=== PATIENT | male | born 1965 | race Caucasian/White ===

== ENCOUNTER 2021-09-13 18:46 | Emergency (ER) | payer OTHER ==
[~2021-09-13] VITALS: Ht 180.3 cm; Wt 113.4 kg
[2021-09-13 19:25] LABS: BASOPHILS ABSOLUTE AUTO 0.05 K/mm3 (0.00-0.23); BASOPHILS PERCENT AUTO 0 % (0-2); EOSINOPHILS ABSOLUTE AUTO 0.18 K/mm3 (0.00-0.68); EOSINOPHILS PERCENT AUTO 1 % (0-6); Hematocrit 37.2 % (37.0-53.0); Hemoglobin 12.2 g/dL (13.5-17.5); IMMATURE GRAN ABSOLUTE AUTO 0.26 K/mm3 (0.00-0.10); IMMATURE GRAN PERCENT AUTO 2 % (0-1); LYMPHOCYTES ABSOLUTE AUTO 2.97 K/mm3 (0.84-5.20); LYMPHOCYTES PERCENT AUTO 18 % (21-46); MONOCYTES ABSOLUTE AUTO 0.86 K/mm3 (0.16-1.47); MONOCYTES PERCENT AUTO 5 % (4-13); Mean Corpuscular HGB 29.5 pg (26.0-34.0); Mean Corpuscular HGB Conc 32.8 g/dL (31.5-36.5); Mean Corpuscular Volume 90 fL (80-100); Mean Platelet Volume 10.2 fL (9.1-12.4); NEUTROPHILS ABSOLUTE AUTO 12.34 K/mm3 (1.96-9.15); NEUTROPHILS PERCENT AUTO 74 % (41-73); Platelet Count 291 K/mm3 (150-400); RDW Coefficient Variation 14.3 % (11.7-14.2); RDW Standard Deviation 46.6 fL (35.1-46.3); Red Blood Cell Count 4.13 M/mm3 (4.30-5.90); White Blood Cell Count 16.66 K/mm3 (4.00-11.30)
[2021-09-13 19:41] LABS: International Normalized Ratio 1.04; Prothrombin Time Results 10.9 Sec (9.7-11.5)
[2021-09-13 19:57] LABS: PCO2 Arterial 34.9 mmHg (35-45); PO2 Arterial 316 mmHg (80-100); pH Blood Arterial 7.39 (7.35-7.45)
[2021-09-13 20:09] LABS: Alanine Aminotransfer (ALT/SGP 88 U/L (12-78); Albumin, Blood 3.2 g/dL (3.4-5.0); Albumin/Globulin Ratio 0.9 (0.8-1.8); Alk Phos 54 U/L (50-136); Anion Gap 8 mmol/L (6-16); Aspartate Aminotrans (AST/SGOT 82 U/L (12-37); Bilirubin, Total 0.5 mg/dL (0.1-1.0); Blood Urea Nitrogen 26 mg/dL (8-24); Bun/Creatinine Ratio 21.1 (12.0-20.0); CO2, Blood 23 mmol/L (21-32); Calcium, Blood 9.1 mg/dL (8.5-10.1); Chloride, Blood 112 mmol/L (98-108); Creatinine, Blood 1.23 mg/dL (0.60-1.20); Ethanol (Alcohol), Blood, Med <3 mg/dL; Globulin, Blood 3.5 g/dL (2.2-4.0); Glomerular Filtration Rate 70 (60-); Glucose, Blood 101 mg/dL (70-99); Potassium, Blood 4.8 mmol/L (3.5-5.5); Sodium, Blood 143 mmol/L (136-145); Total Protein, Blood 6.7 g/dL (6.4-8.2)
[2021-09-13 20:51] LABS: U Amphetamine Screen DETECTED; U Barbituate Screen Not Detected; U Benzodiazapine Screen Not Detected; U Buprenorphine Screen Not Detected; U Cannabinoids Screen Not Detected; U Cocaine Screen Not Detected; U Methadone Screen Not Detected; U Methamphetamine Screen DETECTED; U Opiates Screen Not Detected; U Oxycodone Screen Not Detected; U Phencyclidine Screen Not Detected; U Propoxyphene Screen Not Detected
== END 2021-09-13 21:35 | disposition short-term general hospital (02) ==
LOC: ER 18:46
PROVIDERS: Emergency Medicine
DX: S06.6X0A Traumatic subarachnoid hemorrhage without loss of consciousness, initial encounter (principal); G93.89 Other specified disorders of brain; S12.590A Other displaced fracture of sixth cervical vertebra, initial encounter for closed fracture; S12.690A Other displaced fracture of seventh cervical vertebra, initial encounter for closed fracture; S32.021A Stable burst fracture of second lumbar vertebra, initial encounter for closed fracture; S02.831A Fracture of medial orbital wall, right side, initial encounter for closed fracture; S02.2XXA Fracture of nasal bones, initial encounter for closed fracture; S02.40DA Maxillary fracture, left side, initial encounter for closed fracture; S01.01XA Laceration without foreign body of scalp, initial encounter; R40.2430 Glasgow coma scale score 3-8, unspecified time; V48.3XXA Unspecified car occupant injured in noncollision transport accident in nontraffic accident, initial encounter; Y92.410 Unspecified street and highway as the place of occurrence of the external cause
CPT/HCPCS: 31500; 36600; 51702; 70450; 71045; 71260; 72125; 72170; 73110; 74177; 80053; 82803; 83690; 85025; 85610; 86850; 86900; 86901; 86920; 90714; 94002; G0480; J0690; J2250; J2704; J7030; P9016; Q9967

== ENCOUNTER → 2022-01-19 | Outpatient (CLI) | payer OTHER ==
[2022-01-19 17:12] LABS: Source, Urine Straight Cath
[2022-01-19 17:38] LABS: Appearance, Urine Clear (Clear); Bacteria Rare /hpf; Bilirubin, Urine Neg (Neg); Blood, Urine Neg (Neg); Color, Urine Yellow (P-Yellow); Glucose Qualitative, Urine Neg (Normal); Ketones, Urine Neg (Neg); Leukocyte Esterase, Urine Trace (Neg); Nitrite, Urine Neg (Neg); Protein, Urine Trace (Neg); Red Blood Cells, Urine 0-2 /hpf (0-2); Squamous Epithelial Cells Rare /hpf (Few); Urobilinogen, Urine NORM (Normal); White Blood Cells, Urine 25-50 /hpf (0-5)
== END | disposition home or self-care (01) ==
LOC: LAB SHORT 17:09 → LAB 17:09
PROVIDERS: Family Medicine
DX: N39.0 Urinary tract infection, site not specified (principal)
CPT/HCPCS: 81001

== ENCOUNTER 2022-01-28 07:32 | Inpatient (IN) | payer OTHER ==
[~2022-01-28] VITALS: Ht 180.3 cm; Wt 101.2 kg
[2022-01-28 07:55] LABS: Calcium, Ionized (POC) 1.18 mmol/L (1.10-1.46); Chloride (POC) 107 mmol/L (98-108); Creatinine (POC) 0.6 mg/dL (0.8-1.3); Glucose (ISTAT POC) 140 mg/dL (70-99); Hemoglobin (POC) 15.6 g/dL (13.5-17.5); Potassium (POC) 4.7 mmol/L (3.5-5.5); Sodium (POC) 143 mmol/L (135-148); Total CO2 (POC) 23 mmol/L (21-32)
[2022-01-28 08:04] LABS: BASOPHILS ABSOLUTE AUTO 0.09 K/mm3 (0.00-0.23); BASOPHILS PERCENT AUTO 1 % (0-2); EOSINOPHILS ABSOLUTE AUTO 0.27 K/mm3 (0.00-0.68); EOSINOPHILS PERCENT AUTO 2 % (0-6); Hematocrit 43.8 % (37.0-53.0); Hemoglobin 13.9 g/dL (13.5-17.5); IMMATURE GRAN ABSOLUTE AUTO 0.61 K/mm3 (0.00-0.10); IMMATURE GRAN PERCENT AUTO 4 % (0-1); LYMPHOCYTES ABSOLUTE AUTO 4.24 K/mm3 (0.84-5.20); LYMPHOCYTES PERCENT AUTO 28 % (21-46); MONOCYTES ABSOLUTE AUTO 0.77 K/mm3 (0.16-1.47); MONOCYTES PERCENT AUTO 5 % (4-13); Mean Corpuscular HGB 25.5 pg (26.0-34.0); Mean Corpuscular HGB Conc 31.7 g/dL (31.5-36.5); Mean Corpuscular Volume 80 fL (80-100); Mean Platelet Volume 9.6 fL (9.1-12.4); NEUTROPHILS ABSOLUTE AUTO 9.36 K/mm3 (1.96-9.15); NEUTROPHILS PERCENT AUTO 61 % (41-73); Platelet Count 413 K/mm3 (150-400); RDW Coefficient Variation 19.7 % (11.7-14.2); RDW Standard Deviation 56.1 fL (35.1-46.3); Red Blood Cell Count 5.46 M/mm3 (4.30-5.90); White Blood Cell Count 15.34 K/mm3 (4.00-11.30)
[2022-01-28 08:17] LABS: Alanine Aminotransfer (ALT/SGP 79 U/L (12-78); Albumin, Blood 3.4 g/dL (3.4-5.0); Albumin/Globulin Ratio 0.7 (0.8-1.8); Alk Phos 113 U/L (50-136); Anion Gap 8 mmol/L (6-16); Aspartate Aminotrans (AST/SGOT 99 U/L (12-37); Bilirubin, Total 0.5 mg/dL (0.1-1.0); Blood Urea Nitrogen 14 mg/dL (8-24); CO2, Blood 23 mmol/L (21-32); Calcium, Blood 9.4 mg/dL (8.5-10.1); Chloride, Blood 110 mmol/L (98-108); Creatinine, Blood 0.52 mg/dL (0.60-1.20); Globulin, Blood 4.7 g/dL (2.2-4.0); Glomerular Filtration Rate 120 (60-); Glucose, Blood 145 mg/dL (70-99); Potassium, Blood 4.9 mmol/L (3.5-5.5); Sodium, Blood 141 mmol/L (136-145); Total Protein, Blood 8.1 g/dL (6.4-8.2)
[2022-01-28 09:11] LABS: Source, Urine Straight Cath
[2022-01-28 09:15] LABS: Bilirubin, Urine Neg (Neg); Blood, Urine 4+ (Neg); Glucose Qualitative, Urine Neg (Neg); Ketones, Urine Neg (Neg); Leukocyte Esterase, Urine 3+ (Neg); Nitrite, Urine Pos (Neg); Protein, Urine 2+ (Neg); Urobilinogen, Urine NORM (Normal); pH, Urine 6.5 (5.0-8.0)
[2022-01-28 09:22] LABS: Color, Urine Yellow (P-Yellow)
[2022-01-28 09:26] LABS: Bacteria Many /hpf; Squamous Epithelial Cells Rare /hpf (Few); White Blood Cells, Urine TNTC /hpf (0-5)
[2022-01-28 09:27] LABS: Appearance, Urine Cloudy (Clear)
[2022-01-28] MEDS ORDERED: OXYC5 PO (09:49)
[2022-01-28] MEDS ORDERED: BACLOFEN5 M5 PO (09:50)
[2022-01-28] MEDS ORDERED: ELIQUIS5 M3 PO (09:50)
[2022-01-28] MEDS ORDERED: Ventolin/Prove6.7 GM INH (09:51)
[2022-01-28] MEDS ORDERED: DOCUZEN 8.6-501 EACH PO (09:51)
[2022-01-28] MEDS ORDERED: MIDO5 PO (09:52)
[2022-01-28] MEDS ORDERED: NEURONTIN300 MG PO (09:52)
[2022-01-28] MEDS ORDERED: ONELAX10 MG RC (09:52)
[2022-01-28] MEDS ORDERED: MIRALAX17 GM PO (09:53)
[2022-01-28] MEDS ORDERED: MIRT30 PO (09:53)
--- NOTE | 2022-01-28 12:30 | NUR ---
Patient arrived via gurnet to ICU 1 and monitored. He was a four person slide to bed. He states left shoulder to hand was very painfulless reason for injury. He was on RA and able to communnicate his needs. He was able to move left UE but very weak and limited, using RUE and just a little shaky. LE's flaccid. Family present to get information. HR 55-78 ansd SB-SR. Patient tolerated liquids.
--- NOTE | 2022-01-28 14:30 | NUR ---
Patient has been resting off and on. He is able to hold cup to drink with straw. He tolerated meds all at once with assist and sips of liquids. I was assistang him in different types of utensils to see what he is able to use. He remains on RA and sats >90%. His MAP remains >65. HR in the 70's
--- NOTE | 2022-01-28 16:30 | NUR ---
Patient mostly resting and on phone talking with family. VSS. Reassessed movements and patients LUE has movement to shoulder and arm and unable to close hand and tremulous with poor fine motor skills. Rh hand partial contracted and minimal movement to shoulder and arm and painful to touch or move. Bilateral LE's can feel touch and wiggles toes and gross movements upper legs.
--- NOTE | 2022-01-28 17:44 | NUR ---
Made special spoon for patient and wrapped hand in coban which allowwed him to feed self and ate 100% of dinner. He is able to hold cup and drink. He has fraser draining to gravity and had 1200ml/hr cloudy with sediment urine out. He continues to use cell phone to keep in touch with family, gave son update.
--- NOTE | 2022-01-28 22:19 | NUR ---
Assumed care at 1900, report received from dayshift RN. Pt in bed, on room air, alert and oriented. Call light within reach, VS stable. Will continue to monitor.
[2022-01-29 03:51] LABS: BASOPHILS ABSOLUTE AUTO 0.04 K/mm3 (0.00-0.23); BASOPHILS PERCENT AUTO 1 % (0-2); EOSINOPHILS ABSOLUTE AUTO 0.24 K/mm3 (0.00-0.68); EOSINOPHILS PERCENT AUTO 3 % (0-6); Hematocrit 34.8 % (37.0-53.0); Hemoglobin 10.8 g/dL (13.5-17.5); IMMATURE GRAN ABSOLUTE AUTO 0.06 K/mm3 (0.00-0.10); IMMATURE GRAN PERCENT AUTO 1 % (0-1); LYMPHOCYTES ABSOLUTE AUTO 2.18 K/mm3 (0.84-5.20); LYMPHOCYTES PERCENT AUTO 25 % (21-46); MONOCYTES ABSOLUTE AUTO 0.58 K/mm3 (0.16-1.47); MONOCYTES PERCENT AUTO 7 % (4-13); Mean Corpuscular HGB 25.1 pg (26.0-34.0); Mean Corpuscular Volume 81 fL (80-100); Mean Platelet Volume 9.7 fL (9.1-12.4); NEUTROPHILS PERCENT AUTO 64 % (41-73); Platelet Count 361 K/mm3 (150-400); RDW Coefficient Variation 19.4 % (11.7-14.2); RDW Standard Deviation 56.9 fL (35.1-46.3); Red Blood Cell Count 4.31 M/mm3 (4.30-5.90)
[2022-01-29 04:13] LABS: Albumin, Blood 2.9 g/dL (3.4-5.0); Albumin/Globulin Ratio 0.8 (0.8-1.8); Bilirubin, Total 0.3 mg/dL (0.1-1.0); Bun/Creatinine Ratio 23.6 (12.0-20.0); Calcium, Blood 8.9 mg/dL (8.5-10.1); Creatinine, Blood 0.47 mg/dL (0.60-1.20); Globulin, Blood 3.7 g/dL (2.2-4.0); Total Protein, Blood 6.6 g/dL (6.4-8.2)
--- NOTE | 2022-01-29 06:17 | NUR ---
Shift summary. Pt rested in bed throughout shift. No acute events overnight. Photo put in chart of pressure injury on left buttock. VS stable throughout shift, see assessement for further details. Will continue to monitor and report off to dayshift RN.
--- NOTE | 2022-01-29 07:38 | NUR ---
Received report from Dale BACA. Patient awake in bed and asked for phone so he can start calling family. ECHO is in ICU and will be doing him next. He is alert and oriented and is able to communicate his needs. Patient has mostly full use of RUE from shoulder down and part use of hand as he is not able to squeeze closed completly. Left arm from shoulder down is limited and painful and hand contracted. He cam move bilateral LE grossly, has feeling in feet and can partially wigle some toes. He is on RA and sats >90%. He has 16Fr fraser draining to gravity with yellow cloudy urine with alot of sediment. He has IV to RH and is flushed and SL'd.
--- NOTE | 2022-01-29 08:00 | NUR ---
Received report from Venkat BACA. Patient continues to rest on BIPAP 18/10 and 40% and sats >90%. She opens eyes to verbal stimuli but does not really track voive. She knods to simple questions and not really sure if following commands but squeezes hand and wiggles toes when touching and giving command.She has PICC line to NESTOR and dressing intact and site WNL's and is flushed and SL'd. She has fraser draining to gravity light edward colored urine. She also has rectal tube in place with brown liquid stool. OG in place and is infusing Pivot 1.5 at 50 ml/hr and 30 ml water flushes Q4. Repositioned and boosted in bed. VSS. Patient has ggod strength to all distal extremities and has gross movements.
--- NOTE | 2022-01-29 09:37 | NUR ---
No changes with patient. After setting him up for breakdfast he was able to manage by himself. After breakfast we layed back down and he has been resting since gave warm blankets. VSS. Lowest HR have seen this shift ia 56 SB.
--- NOTE | 2022-01-29 12:00 | NUR ---
PT in room with patient talking about siort and watermaster plans. He remains on RA and sats >90%. He has been resting off and on when left alone. Significant other just left and will be back. Set him up for lunch and he is in room feeding himself. Patient denies any current needs.
--- NOTE | 2022-01-29 14:17 | NUR ---
Patient has had quiet a few visitors and when not visiting he has been on the phon. patient SB-SR and no episode of severe jose alejandro. He has remained alert and oriented. Just prior to lunch he stated was not feeling well but VS good and no other signs other than verbal clues. He has been managing his ongoing araceli ADLs himself with assist. Patient denies any current needs.
--- NOTE | 2022-01-29 15:30 | NUR ---
No significant changes with patient. He rest occassionally between socializing. Remains on RA and sats >90%. Got him some deserts and set utensils up and he was able to feed self.
--- NOTE | 2022-01-29 17:34 | NUR ---
Patient resting and awakened for dinner. He is on RA and sats >90%. No changes to extremity movement. 1500 ml's out for urine. He is able to feed self and calls appropriately for care. VSS.
--- NOTE | 2022-01-29 20:10 | NUR ---
Assumed care at approximately 1900. Report received from dayshift RN. Pt resting in bed, on room air, alert and oriented. No acute needs, VS stable. Will continue to monitor.
[2022-01-30 03:46] LABS: BASOPHILS ABSOLUTE AUTO 0.05 K/mm3 (0.00-0.23); BASOPHILS PERCENT AUTO 1 % (0-2); EOSINOPHILS ABSOLUTE AUTO 0.41 K/mm3 (0.00-0.68); EOSINOPHILS PERCENT AUTO 4 % (0-6); Hematocrit 34.3 % (37.0-53.0); Hemoglobin 10.8 g/dL (13.5-17.5); IMMATURE GRAN ABSOLUTE AUTO 0.14 K/mm3 (0.00-0.10); IMMATURE GRAN PERCENT AUTO 1 % (0-1); LYMPHOCYTES ABSOLUTE AUTO 2.33 K/mm3 (0.84-5.20); LYMPHOCYTES PERCENT AUTO 23 % (21-46); MONOCYTES ABSOLUTE AUTO 0.93 K/mm3 (0.16-1.47); MONOCYTES PERCENT AUTO 9 % (4-13); Mean Corpuscular HGB 25.3 pg (26.0-34.0); Mean Corpuscular HGB Conc 31.5 g/dL (31.5-36.5); Mean Corpuscular Volume 80 fL (80-100); Mean Platelet Volume 9.6 fL (9.1-12.4); NEUTROPHILS ABSOLUTE AUTO 6.42 K/mm3 (1.96-9.15); NEUTROPHILS PERCENT AUTO 62 % (41-73); Platelet Count 353 K/mm3 (150-400); RDW Coefficient Variation 19.7 % (11.7-14.2); RDW Standard Deviation 57.5 fL (35.1-46.3); Red Blood Cell Count 4.27 M/mm3 (4.30-5.90); White Blood Cell Count 10.28 K/mm3 (4.00-11.30)
[2022-01-30 04:06] LABS: Bun/Creatinine Ratio 29.8 (12.0-20.0); Calcium, Blood 9.1 mg/dL (8.5-10.1); Creatinine, Blood 0.5 mg/dL (0.60-1.20); Potassium, Blood 4.2 mmol/L (3.5-5.5)
--- NOTE | 2022-01-30 06:06 | NUR ---
Shift summary. Pt in bed for duration of shift. VS stable. Pt became anxious during shift and stated that he felt something was wrong. EKG, blood sugar and vital signs obtained. Dr. Morgan notified, order obtained for 1 mg of ativan, one time. Pt had calmed by the time the ativan order was verified and did not require it. VS parameters all within normal limits during episode. See shift assessment for further details. Will continue to monitor and report off to dayshift RN.
--- NOTE | 2022-01-30 08:33 | NUR ---
CARE OF PT ASSUMED AT 0700. PT HYPOTENSIVE MAP AROUND 60. BRADYCARDIA 50'S. PT DOES AROUSE. C/O CHRONIC PAIN TO SHOULDERS AND LEFT ARM/HAND 5/5. C/O MUSCLE SPASMS. DR SANDHU AT BEDSIDE THIS AM, GIVEN UPDATE. MIDIDRINE INCREASED, FLUIDS TO BE STARTED.
--- NOTE | 2022-01-30 09:29 | NUR ---
PT EMPERATRIZ DOWN TO 40'S, SLEEPING. VERY DIFFICULT TO AROUSE, BUT ONCE AWAKE, ALERT AND ORIENTED, FELL QUICKLY BACK TO SLEEP AGAIN. POWERGLIDE ST PLACED TO BALBIR. 1/2NS STARTED AT 75.
--- NOTE | 2022-01-30 10:11 | NUR ---
PT DECLINED BEDBATH. ATTENDS CHANGED, SMEAR CLEANED. MEPILEX CHANGED, REDNESS NOTED UNDER DRSG, SEE PICS. CATH CARE COMPLETED. EASY PUSH CALL LIGHT WITHIN REACH. PT ABLE TO USE RIGHT ARM.
--- NOTE | 2022-01-30 17:46 | NUR ---
BP HAS IMPROVED T/O SHIFT. PT STILL COMPLAINS OF SEVERE SPASMS TO MOST OF HIS BODY; BILAT LEGS, ABD, SHOULDERS. BACLOFEN INCREASED IN DOSE TODAY, PT ALSO HAS PRN MUSCLE RELAXER. PT DOES TEND TO GET VERY DROWSY WITH BRADYCARDIA 40'S AFTER MUSCLE RELAXER GIVEN. HOME NSAID CREAM ORDERED AND HELPS A LOT PER PT. HEATING PAD PLACED BEHIND NECK ALSO HAS HELPED WITH PAIN PER PT. PT HAD TWO VERY SMALL BM'S TODAY. GOOD U/O THIS SHIFT. 1/2 NS CONT'S TO RUN AT 75CC/HR. POWERGLIDE PLACED TO BALBIR THIS AM.
--- NOTE | 2022-01-30 21:01 | NUR ---
ASSUMED CARE. AOX3, ABLE TO MAKE NEEDS KNOWN. ABLE TO USE PUSH CALL LIGHT AND HAS ADAPTIVE DEVICES THAT HELP HIM USE HIS PHONE AND CALL LIGHT. FREQUENT MUSCLE SPASMS THAT RANGE FROM LEGS UP TO NECK HE REPORTS WHICH CAUSES PAIN. MEDICATED PER EMAR. LS DIM IN BASES, DENIES COUGH OR CONGESTION. SATS >95% ON RA. SINUS EMPERATRIZ WITH RATE IN THE 50'S. BP STABLE. ABD SOFT SLIGHT DISTENSION. BT ACTIVE, LARGE VERY SOFT BM NOTED. DRESSING CHANGED. ROM PROVIDED TO BLE. REPOSITIONED. CATH PATENT. MEDS GIVEN. CALL LIGHT IN REACH.
--- NOTE | 2022-01-31 05:26 | NUR ---
SHIFT SUMMARY: PT REMAINED STABLE T/O SHIFT. VS HAVE BEEN STABLE EXCEPT A LOW BP THIS AM WITH SBP 80'S MAP OF 62. DENIES ANY DIZZINESS OR CHEST PAIN. CONTINUES TO HAVE SEVERE SPASMS TO MOST OF HIS BODY. KEPT UP ON BACLOFEN AND ZANEFLEX WHICH HELPED TO EASE THE SPASMS SO HE COULD GET SOME SLEEP. PAIN CREAM, OXYCODONE, AND HEAT HELPED WITH PAIN. HR REMAINED IN THE 50'S MOST OF SHIFT OR HIGHER. LARGE SOFT BM TONIGHT. URINE OUTPUT 1650 FROM BHARDWAJ. 03/20 NS CONTS AT 75CC/HR. NO OTHER CHANGES TO NOTE THIS SHIFT. CALL LIGHT IN REACH.
--- NOTE | 2022-01-31 07:30 | NUR ---
CARE OF PT ASSUMED AT 0700. DR SANDHU IN TO SEE PT, UPDATE GIVEN. PT CONTINUES TO C/O SPASMS TO LEGS, ABD, SHOULDER, AND NECK. HEART RATE 40-70'S, BP STABLE. 1/2NS CONTINUES AT 75CC/HR. PT TO REMAIN PCU STATUS TODAY.
--- NOTE | 2022-01-31 16:11 | NUR ---
PT TURNED TO CLEAN BM, NEW MEPILEX PLACED. WHEN HUNTER BOOTS REMOVED OLD APPEARING PRESSURE SORE NOTED TO LEFT HEEL. WE DID REMOVE BOOTS YESTERDAY, BUT DIDNT NOTE THIS. AREA IS CALLOUSED AND HARD, DARK PURPLE, DOESNT JAVIER. PICTURES TAKEN. BOTH FEET HAVE BEEN FLOATED X TWO DAYS WITH HUNTER BOOTS REMOVED SEVERAL TIMES EACH SHIFT TO MOVE FEET.
--- NOTE | 2022-01-31 18:35 | NUR ---
PT STATES HE FEELS BETTER OVERALL TODAY. PT MEDICATED ONCE FOR PAIN, AND MEDICATED W PRN MUSCLE RELAXER FOR BODY SPASMS. PT ABLE TO WORK W OT TODAY BUT DECLINED WORKING W PT D/T PAIN/SPASMS. CHAIR AND BATH OFFERED BUT PT DECLINED D/T SPASMS. PT ALSO DECLINED TO BE TURNED A FEW TIMES FOR THE SAME REASON. PT WAS BOOSTED AND SHIFTED AT TIMES IN LIEU OF TURN WHEN HE DECLINED. PT WAS EDUCATED ON IMPORTANCE OF TURNS D/T PRESSURES SORE. BP IMPROVED, HIGHER TODAY THAN YESTERDAY. PT'S HEART RATE HIGHER OVERALL TODAY WELL. PT ABLE TO EAT SOME OF HIS MEAL ON HIS OWN WITH A VELCRO STRAP THAT HOLDS UTENSILS, BUT DOES REQUIRE HELP WITH EATING SOUP/FRUIT ETC. PT IS HOPING TO BE DISCHARGED TO CARE FACILITY HE STATES HIS GIRLFRIEND IS UNABLE TO PROVIDE FULL CARE. CARE MANAGEMENT IS WORKING ON THIS. PT HAS SEVERAL LOOSE BM'S TODAY, SMALL TO MED. MEPILEX REPLACED ON COCCYX, NO CHANGE TO THAT WOUND. PT CONTINUES TO USE HEATING PAD FOR PAIN TO LEFT SHOULDER AND STATES IT HELPS.
--- NOTE | 2022-02-01 05:50 | NUR ---
SHIFT SUMMARY: PT CONTINUES TO HAVE MUSCLE SPASMS IN LEFT UPPER EXTREMITY. BEST RELIEF WITH DICLOFENAC CREAM. HOME MED HYDROXYZINE ORDERED PRN TID FOR ANXIETY. PT HAD ONE LOOSE BM OVERNIGHT. HELD HIS STOOL SOFTENERS DUE TO FREQUENT LOOSE BMS THE PAST DAY. BHARDWAJ SECURE, DRAINING TO GRAVITY PUT OUT OVER 2300ML OVERNIGHT. PRN TYLENOL + OXY GIVEN. SINUS EMPERATRIZ TO SR 50-70 HEART RATE THROUGHOUT NIGHT NOTED. 1/2 NS RUNNING AT 75ML/HR TO RIGHT POWERGLIDE. BUTTOCKS MEPILEX CHANGED.
[2022-02-01 06:42] LABS: BASOPHILS ABSOLUTE AUTO 0.05 K/mm3 (0.00-0.23); BASOPHILS PERCENT AUTO 1 % (0-2); EOSINOPHILS ABSOLUTE AUTO 0.37 K/mm3 (0.00-0.68); EOSINOPHILS PERCENT AUTO 5 % (0-6); Hematocrit 34.7 % (37.0-53.0); Hemoglobin 10.8 g/dL (13.5-17.5); IMMATURE GRAN ABSOLUTE AUTO 0.08 K/mm3 (0.00-0.10); IMMATURE GRAN PERCENT AUTO 1 % (0-1); LYMPHOCYTES ABSOLUTE AUTO 1.98 K/mm3 (0.84-5.20); LYMPHOCYTES PERCENT AUTO 28 % (21-46); MONOCYTES ABSOLUTE AUTO 0.68 K/mm3 (0.16-1.47); MONOCYTES PERCENT AUTO 10 % (4-13); Mean Corpuscular HGB 25.1 pg (26.0-34.0); Mean Corpuscular HGB Conc 31.1 g/dL (31.5-36.5); Mean Corpuscular Volume 81 fL (80-100); Mean Platelet Volume 9.6 fL (9.1-12.4); NEUTROPHILS ABSOLUTE AUTO 3.81 K/mm3 (1.96-9.15); NEUTROPHILS PERCENT AUTO 55 % (41-73); Platelet Count 341 K/mm3 (150-400); RDW Coefficient Variation 19.4 % (11.7-14.2); RDW Standard Deviation 56.7 fL (35.1-46.3); White Blood Cell Count 6.97 K/mm3 (4.00-11.30)
[2022-02-01 07:16] LABS: Albumin, Blood 2.8 g/dL (3.4-5.0); Anion Gap 6 mmol/L (6-16); Blood Urea Nitrogen 15 mg/dL (8-24); CO2, Blood 25 mmol/L (21-32); Calcium, Blood 8.9 mg/dL (8.5-10.1); Chloride, Blood 111 mmol/L (98-108); Glomerular Filtration Rate 121 (60-); Glucose, Blood 108 mg/dL (70-99); Magnesium, Blood 2.2 mg/dL (1.6-2.4); Phosphorus, Blood 4.5 mg/dL (2.5-4.9); Potassium, Blood 4.2 mmol/L (3.5-5.5); Sodium, Blood 142 mmol/L (136-145)
--- NOTE | 2022-02-01 08:58 | NUR ---
Assumed care of PCU pt at 0700. Report received from Alba BACA. Pt A&O x 4. Answers questions, follows commands, verbalizes needs. Pleasant and cooperative with care. Reporting spasms to bilateral upper extremities. Plan to continue with prescribed medication regimen. Dr Spear in to see patient. States pt may be medical floor status with telemetry.
--- NOTE | 2022-02-01 11:07 | NUR ---
"Spiritual Care | Patient Request Pt.is awake and welcomes my visit. Pt. is pleasant but has deep questions regarding making changes in his code status. Through theraputic listening and pastoral counselor nurses' association issues of nano and belief are considered, Pt. is appropriately cathartic, and displays evidence of clear thinking. Pt. 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 Normalized the Pt. experience, and discussed the possibility of Palliative Care helping him with an Advanced Directive and possibily a POLST. Prayed with the Pt. Pt. verbalized gratitude for the spiritual care visit, and invited this inspector and mender to return. Gave an update to ICU nurse Opal, and Palliative Care Nurse Samuel."
--- NOTE | 2022-02-01 11:56 | NUR ---
Patient's friend Gisela and s/o Bridger in to see patient. Dropped off snacks for patient. Met with home care scheduler and family/patient state concern about pt going home. Pt assigned to room 364. Chart, medications, belongings, adaptive devices transferred with patient. On transfer, patient had BM. Medium liquid brown BM.
--- NOTE | 2022-02-01 16:27 | NUR ---
Received call from CONSTRUCTION SITE MANAGER Opal reporting Pt to be transfered to medical floor and he would like to discuss AD and POLST. Spoke with Metal Filer Colton reporting similar request. Pt resting in bed and denies pain, dyspnea, anxiety, and nausea. Pt does appear mildly anxious. Pt confirms his wishes to discuss AD and POLST. Educated on both forms and each section to complete. Educated on life sustaining measures including risk factos and implications of CPR. Discussed the importance of appointing a healthcare uniforms sales representative on AD. Offered therapeutic listening and answered questions. Pt reports plan to discuss with friend and requests this RN to return tomorrow morning to assist with completion of forms. Palliative Care will F/U tomorrow
--- NOTE | 2022-02-01 19:55 | NUR ---
END OF SHIFT SUMMARY: PATIENT ARRIVED TO UNIT AT LUNCH TIME. PATIENT ALERT AND ORIENTED X4. PATIENT REPORTED NERVE PAIN IN HIS LEFT SHOULDER AND LEFT THUMB AND FOREFINGER. PATIENT REPORTS PAIN IN HIS NECK AND BACK. WITH PHYSICAL STIMULATION, SUCH REPOSITIONING, PATIENT EXPERIENCES PAINFUL MUSCLE SPASMS. MEDICATED THROUGHOUT THE SHIFT FOR PAIN AND MUSCLE SPASMS. PATIENT IS INDEPENDENT WITH EATING (AFTER SET UP), HIS PHONE, CALL LIGHT AND REMOTE. PATIENT EXPRESSES MOTIVATION TO INCREASE HIS STRENGTH AND CAPABILITIES. PATIENT WORKED WITH PT AND OT TODAY. PATIENT TOLERATED WELL.
--- NOTE | 2022-02-02 04:51 | NUR ---
PAIN NOT WELL MANAGED THROUGHOUT SHIFT. PATIENT HAS SCHEDULED OXYCODONE 2.5 MG Q 6 HOURS THAT WAS INSUFFICIENT IN PAIN MANAGEMENT. AROUND 0415 PATIENT WAS UNABLE TO COPE WITH PRESENT PAIN AND REQUESTED ADDITIONAL DOSES OF PAIN MEDICATION AND MUSCLE RELAXANT. SPOKE WITH DR. THOMAS WHO ORDERED ONE TIME DOSE OF BACLOFEN 20 MG AND OXYCODONE 5 MG. PATIENT'S PAIN IMPROVED AFTER ADMINISTRATION. SHIFT OTHERWISE UNREMARKABLE. BHARDWAJ DRAINING WELL, CLEAN AND INTACT. REPOSITIONED WITH MODERATE ASSISTANCE. INCONTINENT OF BM. CALL LIGHT LEFT WITHIN REACH.
--- NOTE | 2022-02-02 10:54 | NUR ---
Brief supportive visit this AM. Pt reports not having spoken with his friend yet. Gentle education on considering appointing a healthcare business representative that lives local and easy to contact. Pt expresses appreciation and will continued considering healthcare rep. Palliative Care will remain available.
--- NOTE | 2022-02-02 13:27 | NUR ---
Spiritual Care Visit. Pt. is awake in bed and welcomes my visit. Pt. is pleasant, and verbalized gratitude for the discussion he had with Palliative Care nurse Samuel. Pt. is condiering implications of establishing his Advanced Directive and possibly changing his NOK decision maker. Re-establish rapport. Prayed with Pt. Pt. verbalized gratritude for the spiritual care visit.
--- NOTE | 2022-02-02 18:11 | NUR ---
SHIFT SUMMARY PATIENT IS ALERT AND ORIENTED. PATIENT WAS GETTING 2.[address] APPROVED AN ORDER TO 5MG OXYCODONE FOR PAIN. PAIN SEEMS BETTER MANAGED TODAY THAN WHAT NOC NURSE REPORTED. PATIENTS BHARDWAJ IS PATENT AND DRAINING TO GRAVITY. PATIENT HAS NOT COMPLAINED OF SOB, NAUSEA, OR VOMITTING. NO ACUTE EVENTS THIS SHIFT. VITAL SIGNS REVIEWED. PATIENT IN LOCKED AND LOWEST POSITION. CALL LIGHT IN PLACE. WILL MONITOR UNTIL SHIFT CHANGE.
--- NOTE | 2022-02-03 04:27 | NUR ---
SHIFT SUMMARY PATIENT HAD NO ACUTE CHANGES. AXOX 4 AND BEDREST. BHARDWAJ PATENT AND DRAINING TO GRAVITY. POWERGLIDE BALBIR INTACT. REPORTED ANXIETY AND ATARAX 25 MG GIVEN PER EMAR. OXYCODONE 5 MG GIVEN X 2 FOR NECK/RIGHT SHOULDER PAIN. ZANAFLEX 4 MG GIVEN X ONE FOR RESTLESS LEGS. DENIES SOB AND N/V. VSS/AFEBRILE. REPORTED BAD DREAM CRYING WHEN AWAKEN. THERAPEUTIC SUPPORT PROVIDED. REPORTS WOULD LIKE TO GO BACK HOME TO [place] WHERE FAMILY AND RELATIVES LIVE. CALL LIGHT IN REACH. BED IN LOWEST POSITION. WILL CONTINUE TO MONITOR UNTIL DAY SHIFT NURSE ASSUMES CARE.
--- NOTE | 2022-02-03 13:24 | NUR ---
Spiritual Care Visit. Pt. is awake, finishing lunch and welcomes my visit. Pt. is pleasant but unsettled about his family particularly his grandchildren. Listen empathetically with a calming presence. Pt. displays evidence of engagement and awareness. Pt. verbalizes hope to be able to be transfeerred to a SNF. Prayed with Pt. Pt. verbalized gratitude for the spiritual care visit, and welcomed this chamber worker to return.
--- NOTE | 2022-02-03 17:00 | NUR ---
SHIFT SHIFT PATIENT IS ALERT AND ORIENTED. PATIENT HAS HAD NO ACUTE EVENTS THIS SHIFT. VITAL SIGNS REVIEWED. PATIENT HAS BEEN INTERVIEWED BY A REHAB FACILITY IN [place], POSSIBLE DISCHARGE NEXT WEEK. PATIENT HAS NOT COMPLAINED OF NAUSEA, SOB OR VOMITTING. PATIENT HAS COMPLAINED OF PAIN, ANXIETY AND RESTLESS LEGS THIS SHIFT AND MEDICATED PER EMAR. PATIENT IS PLEASENT AND COOPERATIVE WITH CARE. BED IN LOCKED AND LOWEST POSITION. CALL LIGHT IN PLACE. WILL MONITOR UNTIL SHIFT CHANGE.
--- NOTE | 2022-02-03 22:53 | NUR ---
WAS REPOSITIONED EARLIER AND GIVEN PAIN MED. CURRENTLY VOICED FEELING "OK". TALKING ON PHONE. HOB ELEVATED. CALL LIGHT IN REACH.
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
--- NOTE | 2022-02-04 13:23 | NUR ---
FRIEND CAME TO VISIT PT BY THE NAME OF FERNANDO MATTHEW PHONE NUMBER . REPORTS HE HAS BEEN TRYING TO GET IN CONTACT WITH PTS FAMILY IN [place] TO NOTIFY THEM OF PTS CONDITION. PT HAD BEEN BEING ASSISTED WITH CARE BY A ROOMMATE WHO IS NOW ON HOSPICE IN A [facility] FACILITY. FRIEND FERNANDO REPORTS CONCERN FOR PT GOING BACK HOME DUE TO LIVING CONDITIONS AND NO HELP AT HOME.
--- NOTE | 2022-02-04 14:56 | NUR ---
APPLIED HEEL MEPILEX TO PT'S LEFT HEEL. PT HAS A QUARTER SIZED PRESSURE BLISTER THAT HAS NOT YET OPENED. FLOATING ON PILLOW TO PREVENT WORSENING.
--- NOTE | 2022-02-04 18:32 | NUR ---
HELD PT MIDODRINE. BLOOD PRESSURE ELEVATED IN THE 190'S OVER 100'S. A FEW MINUTES LATER PT COMPLAINED OF NOT FEELING WELL. RECHECKED BLOOD PRESSURE WHICH WAS 152/88 AND NOTICED PATIENT HAD RELEASED A BIT OF URINE IN CATHETER. RECHECKED BLOOD PRESSURE AGAIN AND WAS 134/86.
--- NOTE | 2022-02-04 18:35 | NUR ---
SHIFT SUMMARY: PT ALERT AND ORIENTED X4. HE HAS BEEN PLEASANT AND COOPERATIVE WITH ALL CARE PROVIDED. PT C/O PAIN TWICE DURING THE SHIFT. GAVE HIM HIS PRN OXYCODONE AND TYLENOL WHICH HE STATED HELPED WITH THE PAIN. HE ALSO RECEIVED 2 DOSES OF PRN MUSCLE RELAXER. AROUND 1800, PT C/O OF NOT FEELING WELL. HE WAS HYPERTENSIVE WHEN CHECKED ON BOTH ARMS. LATER RECHECKED BLOOD PRESSURE AND IT HAD COME DOWN TO 130'S OVER 80'S. HE STATED HE HAD FELT BETTER. APPLIED HEEL MEPILEX DRESSING TO PT LEFT HEEL. CALL LIGHT IN REACH. BED IN LOWEST POSITION. WILL CONTINUE TO MONITOR.
--- NOTE | 2022-02-05 06:13 | NUR ---
SHIFT SUMMARY 56 YR M ADMITTED FOR PAIN MANAGEMENT WHILE DETERMINING PLACEMENT. FULL CODE. NO ACUTE CHANGES THIS SHIFT. PT GOT CONFUSED ABOUT THE TIMING FOR HIS MEDS AND GOT UPSET ABOUT IT THIS MORNING. HE STATED THAT HE HAS BEEN RECEIVING ALL OF HIS PILLS Q4 SINCE HE HAS BEEN HERE AND WANTED TO KNOW WHY THIS NURSE WAS NOT COMPLYING WITH THAT. HIS MEDICATION TIMES AND INTERVALS WERE EXPLAINED TO HIM BUT HE FELT THAT THE EXPLANATION WAS WRONG. HE ASKED TO SPEAK TO A CHARGE NURSE WHO REITERATED WHAT THE RN HAD EXPLAINED TO HIM AND THIS SEEMED TO MAKE HIM FEEL BETTER. HE APOLOGIZED FOR HIS ATTITUDE AND WE ALL MOVED FORWARD FROM IT. HE WOULD STILL LIKE AN OPPORTUNITY TO SPEAK TO HIS DOCTOR REGARDING HIS EVERYDAY MEDS.
--- NOTE | 2022-02-05 18:23 | NUR ---
SHIFT SUMMARY PT HAS BEEN RESTING QUIETLY IN BED. PT HAS CALLED APPROPRIATELY FOR ASSISTANCE AND BEEN COOPERATIVE WITH ALL CARES. PT HAS C/O CHRONIC PAIN THROUGHOUT THE DAY THAT HAS BEEN MANAGED WITH REST, REPOSITIONING, AND MEDICATIONS. PT HAS CONVERSED ABOUT THEIR HOPE FOR FACILITY PLACEMENT TOMORROW.
--- NOTE | 2022-02-06 04:55 | NUR ---
SHIFT SUMMARY 56 YR M AWAITING PLACEMENT AT THIS TIME. FULL CODE. HE CALLS APPROPRIATELY AND IS PLEASANT AND COOPERATIVE WITH CARE. HE HAD A LARGE BM THIS SHIFT AND IT IS VERY PAINFUL FOR HIM WHEN HE IS TURNED DURING CLEAN UP. HE IS PROACTIVE WITH HIS CARE AND VOLUNTARILLY DID ARM EXCERCIZES TO STRENGHTHEN HIS MUSCLES.
--- NOTE | 2022-02-06 19:39 | NUR ---
END OF SHIFT SUMMARY: PATIENT REPORTED HIS BASELINE PAIN IN HIS NECK, LEFT SHOULDER, LEFT BICEP, AND LEFT FINGER AND THUMB. WORKED TO CONTROL HIS PAIN WITH SCHEDULED AND PRN MEDICATIONS AND REPOSITIONING. PATIENT REPORTED HE WOULD LIKE TO SPEAK WITH THE MD TOMORROW ABOUT GROUPING HIS MEDICATIONS TO ACHIEVE BETTER PAIN CONTROL. COMPARED TO LAST SUNDAY, PATIENT HAD DECREASED MUSCLE SPASMS DURING ACTIVITY AND INTERVENTIONS. PATIENT EXPERIENCED SOME HIGHER BLOOD PRESSURES TODAY. PATIENT'S SO REPORTED THAT THIS HAPPENS FREQUENTLY AT HOME AND THAT HIS BP CAN BE CHANGED BY CHANGING HIS POSITION OR BLANKETS. PATIENT CONTINUES TO EXPRESS MOTIVATION TO INCREASE HIS STRENGTH AND PHYSICAL ABILITIES. PATIENT IS WORKING TO SPEAK WITH VARIOUS FACILITIES TO LEARN MORE ABOUT HIS OPTIONS AND HELP FIND AN OPEN BED. PATIENT IS FREQUENTLY ON THE PHONE WITH FAMILY AND FRIENDS. PATIENT REPORTS THAT THEY ARE SUPPORTIVE.
--- NOTE | 2022-02-07 05:26 | NUR ---
LIBRARY CLERK SUMMARY: A&Ox4. PLEASANT AND COOPERATIVE WITH CARE. CALLS APPROPRIATELY. ABLE TO COMMUNICATE NEEDS EFFECTIVELY. MEDICATED PRN PAIN AND SPASMS T/O THE NIGHT. BHARDWAJ PATENT AND DRAINING TO GRAVITY. VSS. NO ACUTE CONCERNS T/O THE NIGHT. WILL REPORT TO ONCOMING RN.
[2022-02-07 06:22] LABS: BASOPHILS ABSOLUTE AUTO 0.03 K/mm3 (0.00-0.23); BASOPHILS PERCENT AUTO 0 % (0-2); EOSINOPHILS ABSOLUTE AUTO 0.33 K/mm3 (0.00-0.68); EOSINOPHILS PERCENT AUTO 5 % (0-6); Hematocrit 35.1 % (37.0-53.0); Hemoglobin 10.8 g/dL (13.5-17.5); IMMATURE GRAN ABSOLUTE AUTO 0.07 K/mm3 (0.00-0.10); IMMATURE GRAN PERCENT AUTO 1 % (0-1); LYMPHOCYTES ABSOLUTE AUTO 2.13 K/mm3 (0.84-5.20); LYMPHOCYTES PERCENT AUTO 30 % (21-46); MONOCYTES ABSOLUTE AUTO 0.69 K/mm3 (0.16-1.47); MONOCYTES PERCENT AUTO 10 % (4-13); Mean Corpuscular HGB Conc 30.8 g/dL (31.5-36.5); Mean Corpuscular Volume 81 fL (80-100); Mean Platelet Volume 9.7 fL (9.1-12.4); NEUTROPHILS ABSOLUTE AUTO 3.75 K/mm3 (1.96-9.15); NEUTROPHILS PERCENT AUTO 54 % (41-73); Platelet Count 390 K/mm3 (150-400); Red Blood Cell Count 4.32 M/mm3 (4.30-5.90)
[2022-02-07 06:58] LABS: Bun/Creatinine Ratio 24.5 (12.0-20.0); Calcium, Blood 8.7 mg/dL (8.5-10.1); Creatinine, Blood 0.61 mg/dL (0.60-1.20); Potassium, Blood 4.2 mmol/L (3.5-5.5)
--- NOTE | 2022-02-07 17:04 | NUR ---
Spiritual Care Visit. Pt. is napping but responds when I enter the room. The Pt. welcomes my visit. Pt. is pleasant and verbalizes the shauna of being accepted into a SNF in [place] with anticipated transfer scheduled for Sunday. Re-establish rapport and consider issues of family and nano. Pt. is occassionally cathartic, but his tears were genuine and displayed evidence of hope. Prayed with the Pt. Pt. requested a Bible, and I provide him with a Dilia AMES/Giulianos. Pt. verbalized gratitude for the bible and the spiritual care visit and request I visit him on Sunday before the holiday.
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
--- NOTE | 2022-02-08 07:31 | NUR ---
SEMICONDUCTOR PROCESSING GROUP LEADER SUMMARY: A&Ox4. PLEASANT AND COOPERATIVE WITH CARE. CALLS APPROPRIATELY AND COMMUNICATES NEEDS EFFECTIVELY. CONTINUES TO STRUGGLE WITH MUSCLE SPASMS AND PAIN. HE IS HOPING TO REVIEW MEDICATION LIST WITH PROVIDER TODAY TO FIGURE OUT HOW MEDICATIONS CAN BE GROUPS TO AVOID SO MANY DIFFERENT MEDICATION ADMINISTRATIONS, ESPECIALLY T/O THE NIGHT. ABDOMEN APPEARS SWOLLEN, THOUGH SOFT. 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 LBM 02/07/22. BHARDWAJ PATENT AND DRAINING AND BLADDER SCAN WNL. PER PT, HE IS PRONE TO BOWEL OBSTRUCTIONS AND IMPACTION D/T SPINAL CORD INJURY. PER DR ALEJO, OK FOR ABD XRAY TO BE DONE THIS MORNING. NO OTHER CONCERNS T/O THE NIGHT. WILL REPORT TO ONCOMING RN.
--- NOTE | 2022-02-08 17:33 | NUR ---
PT IA A/OX4, PLEASANT AND COOPERATIVE. THE PT IS BED REST DUE TO PARAPLEGIA. THE PT WAS TURNED T/O THE DAY. THE PT WAS MEDICATED FOR PAIN, ANXIETY AND FOR MUSCLE SPASM T/O THE DAY. PTS ABD WAS VERY DISTENDED CAUSING THE PT TO FEEL BLOATED A SUPOSITORY AND LAXATIVES WERE GIVEN, THE PT HAD 2 LARGE BM TODAY AND FEELS BETTER AT THIS TIME. PTS FRIENDS WERE IN TO VISIT TODAY. CALL LIGHT IN REACH. WILL CONTINUE TO MONITOR AND ASSESS FOR CHANGES
--- NOTE | 2022-02-08 17:48 | NUR ---
Spiritual Care Visit. Pt. was resting but awakened when I entered the room and welcomed my visit. Pt. is uncomfortable because his position made it difficult to look to his left. I moved the physician's chair to the other side of the bed, and the pt. displayed evidence of greater comfort. Pt. is pleasant and rapport is re-established. Pt. displayed evidence of trust and engagement, and verbalized his excitement for transfer to [facility] on Sunday. Prayed for Pt. Pt. verbalized gratitude for the Spiritual Care and the nursing care he has received.
--- NOTE | 2022-02-09 05:38 | NUR ---
SUMMARY: PT A/OX4, CALLS APPROPRIATELY TO SPECIFY NEEDS AND IS PLEASANT AND COOPERATIVE W/CARE. HE'S W/C BOUND AT BASELINE AND REMAINS ON BEDREST D/T INCOMPLETE QUADRIPLEGIA. PT HAS GROSS MOVEMENT INTACT TO RUE, WEAK LUE W/LIMITED MOBILITY D/T FROZEN SHOULDER AND NEAR FLACCID BLE'S. BRACES REMAIN INTACT TO BLE'S AND KICKSTANDS ALTERNATED FOR CONTRACTURE/ROTATION PREVENTION. HE WAS MEDICATED FOR PAIN PER PT INSTRUCTION W/OXYCODONE, ZANAFLEX AND TYLENOL TOGETHER PRN. SCHEDULED BACLOFEN AND GABAPENTIN RECIEVED PER EMAR HOWEVER PT DISCUSSED W/DIGITAL DATA ANALYST THE NEED FOR THESE MEDS TO BE RX'D QID T/O 24 HOURS VS JUST DAYTIME HOURS TO IMPROVE PAIN CONTROL. HE ALSO WAS PROVIDED ATARAX FOR C/O ANXIETY THIS AM. STOOL SOFTENERS AND SIMETHICONE WERE PROVIDED FOR BLOATING AND GAS BUT MIRILAX WAS HELD PER REQUEST FOR CONT'D LOOSE STOOLS. TURN SCHEDULE WAS MAINTAINED W/PILLOWS PLACED FOR SUPPORT AND MEPILEX REMAINS C/D/I TO EXCORIATED COCCYX. CHRONIC BHARDWAJ IS PATENT/DRAINING. NO ACUTE CHANGES, VSS/AFEBRILE. WCTM AND REPORT TO DAY RN.
--- NOTE | 2022-02-09 15:50 | NUR ---
SYMPTOMATIC BRADYCARDIA PT LETHARGIC THIS AFTERNOON WITH A HEARTRATE FROM 46-49 BPM. PT STILL ALERT & ORIENTED. FALLS ASLEEP QUICKLY WITHOUT CONTINUAL STIMULI. MESSAGE LEFT WITH DR. ROSARIO. MEDICAL ONCOLOGIST NOTIFIED.
--- NOTE | 2022-02-09 17:05 | NUR ---
ATROPINE GIVEN PT GIVEN ATROPINE DUE TO SYMPTOMATIC BRADYCARDIA. TELE IN PLACE PRIOR TO ADMINISTRATION. RUNNING SINUS EMPERATRIZ IN THE HIGH 40S PER PATHOLOGY TECHNICIANKEKE RODNEY. 0.5 OF ATROPINE GIVEN AND PT NOW IN THE MID 50S. COMFIRMED WITH PATHOLOGY TECHNICIAN. PT CONTINES TO BE LETHARGIC. PT INFORMED THAT SEDATING MEDS WILL BE HELD AT TIMES TIME.
--- NOTE | 2022-02-09 18:39 | NUR ---
SHIFT SUMMARY PT HR IN THE MID-LOW 50S AT THIS TIME. PT CONTINUES TO BE LETHARGIC WHEN NO BEING TALKED TO, HOWEVER, LETHARGY APPEARS TO BE IMPROVING. DR. ROSARIO TALKED WITH DR. DUNNE TO COME TAKE A LOOK AT THE PT. DR. DUNNE CAME TO SEE THE PT, EKG, VBG, 500CC FLUID BOLUS ORDERED. DR. DUNNE ALSO STOPPED ALL OF THE ORDERED MUSCLE RELAXERS AND PAIN MEDS. IF PT IS TO NEED SOMETHING IN THE NIGHT, THE RN IS TO CALL DR. DUNNE OR THE COVERING PHYSICIAN TO ASSESS PT AND ORDER MEDS THEN. NOP BM TODAY. FLEET ENEMA HELD PER DR. DUNNE. BHARDWAJ PATENT & DRAINING. PT ALSO PLACED ON TELE THIS SHIFT. RUNNING SINUS EMPERATRIZ. [employer] ASSOCIATE TO CALL IF PT DECREASES BELOW 50BPM. ONE DOSE OF ATROPINE GIVEN EARLIER IN SHIFT WITH A CHANGE FROM HR IN THE 40S TO THE 50S. PT CURRENLTY BACK DOWN IN THE HIGH 40S PER ICE CREAM SHOP ASSOCIATE. PT REMAINS A&OX4, DENIES DIZZINESS, SOB, OR CP. OTHER VS STABLE. NO OTHER ACUTE CHANGES IN ASSESSMENT AT THIS TIME. CALL LIGHT IN REACH.
[2022-02-09 18:54] LABS: Base Excess Venous 1.9 mmol/L; Bicarbonate Venous 26.3 mmol/L (24.0-30.0); PCO2 Venous 33.5 mmHg (38-42); pH Blood Venous 7.49 (7.34-7.37)
--- NOTE | 2022-02-10 05:36 | NUR ---
Summary: Patient BP soft with first vitals check, as well as HR in low 50s. Patient awake and alert requesting his pain and sleeping meds that were discontinued. Notified MD. 500cc bolus given and midodrine dose from 1800 given per MD request. BP checked after meds given and it had come up. Patient prn meds reordered. Patient reported pain and muscle spasms throughout the night. Patient had a few liquid BMs. Patient frequently bears down and locks all of his muscles when he has a spasm. Educated patient to try to avoid bearring down as that can cause a vagal reaction and lower his heart rate even more. Patient family visited at start of shift.
[2022-02-10 06:49] LABS: BASOPHILS ABSOLUTE AUTO 0.04 K/mm3 (0.00-0.23); BASOPHILS PERCENT AUTO 1 % (0-2); EOSINOPHILS ABSOLUTE AUTO 0.39 K/mm3 (0.00-0.68); EOSINOPHILS PERCENT AUTO 5 % (0-6); Hematocrit 32.8 % (37.0-53.0); Hemoglobin 10.6 g/dL (13.5-17.5); IMMATURE GRAN ABSOLUTE AUTO 0.08 K/mm3 (0.00-0.10); IMMATURE GRAN PERCENT AUTO 1 % (0-1); LYMPHOCYTES ABSOLUTE AUTO 1.39 K/mm3 (0.84-5.20); LYMPHOCYTES PERCENT AUTO 19 % (21-46); MONOCYTES ABSOLUTE AUTO 0.71 K/mm3 (0.16-1.47); MONOCYTES PERCENT AUTO 10 % (4-13); Mean Corpuscular HGB 25.9 pg (26.0-34.0); Mean Corpuscular HGB Conc 32.3 g/dL (31.5-36.5); Mean Corpuscular Volume 80 fL (80-100); Mean Platelet Volume 9.7 fL (9.1-12.4); NEUTROPHILS ABSOLUTE AUTO 4.62 K/mm3 (1.96-9.15); NEUTROPHILS PERCENT AUTO 64 % (41-73); Platelet Count 359 K/mm3 (150-400); RDW Coefficient Variation 18.4 % (11.7-14.2); RDW Standard Deviation 53.9 fL (35.1-46.3); Red Blood Cell Count 4.09 M/mm3 (4.30-5.90); White Blood Cell Count 7.23 K/mm3 (4.00-11.30)
[2022-02-10 07:14] LABS: Bun/Creatinine Ratio 27.7 (12.0-20.0); Calcium, Blood 8.9 mg/dL (8.5-10.1); Creatinine, Blood 0.51 mg/dL (0.60-1.20)
--- NOTE | 2022-02-10 07:19 | NUR ---
ASSUMED CARE: PT RESTING QUIETLY AT THIS TIME. SINUS EMPERATRIZ IN THE 50S WITH BBB ON TELE. NO ACUTE NEEDS OR CONCERNS NOTED.
--- NOTE | 2022-02-10 18:40 | NUR ---
SHIFT SUMMARY: PT COCCYX DRESSING CHANGED WITH LINEN CHANGE AND BM. SITE FOR PROTECTION ONLY. PT MEDICATED FOR PAIN AND MUSLE SPASMS T/O SHIFT AVAILABLE PER EMAR. S.O. AT BEDSIDE AT THIS TIME. PLAN FOR DC TO SNF ON SUNDAY. NO ACUTE NEEDS OR CONCERNS AT THIS TIME.
--- NOTE | 2022-02-11 04:39 | NUR ---
SHIFT MOSTLY UNREMARKABLE. PAIN WELL MANAGED ON CURRENT MEDICATION REGIMEN. NONPHARMACOLOGICAL EFFECTIVE METHOD OF RELIEF WAS STRETCHING EXTREMITIES. 1 BOWEL MOVEMENT AROUND 0000. PATIENT WAS ABLE TO SLEEP THROUGH MOST OF NIGHT AFTER 0000 MEDICATION ADMINISTRATION. CALL LIGHT LEFT WITHIN REACH.
[2022-02-11 06:06] LABS: BASOPHILS ABSOLUTE AUTO 0.04 K/mm3 (0.00-0.23); BASOPHILS PERCENT AUTO 1 % (0-2); EOSINOPHILS PERCENT AUTO 7 % (0-6); Hematocrit 33.9 % (37.0-53.0); Hemoglobin 10.9 g/dL (13.5-17.5); IMMATURE GRAN ABSOLUTE AUTO 0.05 K/mm3 (0.00-0.10); IMMATURE GRAN PERCENT AUTO 1 % (0-1); LYMPHOCYTES ABSOLUTE AUTO 1.55 K/mm3 (0.84-5.20); LYMPHOCYTES PERCENT AUTO 29 % (21-46); MONOCYTES ABSOLUTE AUTO 0.61 K/mm3 (0.16-1.47); MONOCYTES PERCENT AUTO 11 % (4-13); Mean Corpuscular HGB 25.8 pg (26.0-34.0); Mean Corpuscular HGB Conc 32.2 g/dL (31.5-36.5); Mean Corpuscular Volume 80 fL (80-100); Mean Platelet Volume 9.3 fL (9.1-12.4); NEUTROPHILS ABSOLUTE AUTO 2.76 K/mm3 (1.96-9.15); NEUTROPHILS PERCENT AUTO 51 % (41-73); Platelet Count 363 K/mm3 (150-400); RDW Coefficient Variation 18.2 % (11.7-14.2); RDW Standard Deviation 53.2 fL (35.1-46.3); Red Blood Cell Count 4.23 M/mm3 (4.30-5.90); White Blood Cell Count 5.41 K/mm3 (4.00-11.30)
[2022-02-11 06:19] LABS: Bun/Creatinine Ratio 23.1 (12.0-20.0); Calcium, Blood 9.2 mg/dL (8.5-10.1); Creatinine, Blood 0.52 mg/dL (0.60-1.20); Potassium, Blood 3.9 mmol/L (3.5-5.5)
--- NOTE | 2022-02-11 17:17 | NUR ---
SHIFT SUMMARY NO ACUTE CHANGES DURING SHIFT. PT ALERT AND ORIENTED, CALLS APPROPRIATELY. DRESSING TO LEFT HEEL CHANGED. PLANS FOR D/C TO FACILITY SUNDAY. SCHEDULED AND PRN PAIN MEDICATIONS ADMINISTERED THROUGHOUT SHIFT. MONITOR FOR EFFECTIVENESS. CALL LIGHT WITHIN REACH.
--- NOTE | 2022-02-12 04:56 | NUR ---
SHIFT MOSTLY UNREMARKABLE. PAIN IS ADEQUATELY MANAGED ON CURRENT MEDICATION REGIMEN ALTHOUGH NOT COMPLETELY. ASSISTED PATIENT WITH BLE STRETCHES AND ROM EXERCISES WHICH HE REPORTS HELPS WITH PAIN AND DISCOMFORT. SHIFT OTHERWISE NOT NOTEWORTHY. PATIENT PLANS ON DISCHARGING TO [facility]ISON FACILITY BUT IS CLEARLY ANXIOUS ABOUT THE CHANGE IN ENVIRONMENT. CALL LIGHT LEFT WITHIN REACH.
--- NOTE | 2022-02-12 17:27 | NUR ---
SHIFT SUMMARY NO ACUTE CHANGES DURING SHIFT. PT ALERT AND ORIENTED, CALLS APPROPRIATELY. DRESSINGS TO BUTTOCKS AND HEELS CDI. PT DOWN FOR ABD XRAY THIS AFTERNOON. PLAN FOR D/C TOMORROW TO FACILITY. PRN PAIN MEDICATIONS ADMINISTERED THROUGHOUT SHIFT. WILL MONITOR FOR EFFECTIVENESS. CALL LIGHT WITHIN REACH
--- NOTE | 2022-02-13 05:16 | NUR ---
PATIENT HAD 2 LARGE BOWEL MOVEMENTS OVER COURSE OF SHIFT. PASSIVE BLE ROM EXERCISES AND STRETCHES COMPLETED AT ABOUT 0000. PATIENT WAS ABLE TO SLEEP THROUGH MOST OF THE NIGHT AFTER THESE EXERCISES. COVID SWAB COLLECTED AND SENT TO LAB AROUND 0430. DISCHARGE PLANNED FOR TODAY. PATIENT IS MILDLY ANXIOUS ABOUT TRANSFER AND HAS MANY QUESTIONS. CALL LIGHT LEFT WITHIN REACH.
[2022-02-13 06:04] LABS: SARS-Cov-2 (COVID-19) PCR, MMC NEGATIVE (NEGATIVE)
[2022-02-13 06:18] LABS: BASOPHILS ABSOLUTE AUTO 0.03 K/mm3 (0.00-0.23); BASOPHILS PERCENT AUTO 1 % (0-2); EOSINOPHILS ABSOLUTE AUTO 0.32 K/mm3 (0.00-0.68); EOSINOPHILS PERCENT AUTO 6 % (0-6); Hematocrit 33.3 % (37.0-53.0); Hemoglobin 10.6 g/dL (13.5-17.5); IMMATURE GRAN ABSOLUTE AUTO 0.08 K/mm3 (0.00-0.10); IMMATURE GRAN PERCENT AUTO 1 % (0-1); LYMPHOCYTES ABSOLUTE AUTO 2.01 K/mm3 (0.84-5.20); LYMPHOCYTES PERCENT AUTO 34 % (21-46); MONOCYTES ABSOLUTE AUTO 0.66 K/mm3 (0.16-1.47); MONOCYTES PERCENT AUTO 11 % (4-13); Mean Corpuscular HGB 25.5 pg (26.0-34.0); Mean Corpuscular HGB Conc 31.8 g/dL (31.5-36.5); Mean Corpuscular Volume 80 fL (80-100); Mean Platelet Volume 9.2 fL (9.1-12.4); NEUTROPHILS ABSOLUTE AUTO 2.75 K/mm3 (1.96-9.15); NEUTROPHILS PERCENT AUTO 47 % (41-73); Platelet Count 361 K/mm3 (150-400); RDW Coefficient Variation 18.3 % (11.7-14.2); RDW Standard Deviation 53.5 fL (35.1-46.3); Red Blood Cell Count 4.15 M/mm3 (4.30-5.90); White Blood Cell Count 5.85 K/mm3 (4.00-11.30)
[2022-02-13 06:30] LABS: Bun/Creatinine Ratio 27.9 (12.0-20.0); Calcium, Blood 8.7 mg/dL (8.5-10.1); Creatinine, Blood 0.5 mg/dL (0.60-1.20); Potassium, Blood 3.9 mmol/L (3.5-5.5)
--- NOTE | 2022-02-13 17:47 | NUR ---
SHIFT SUMMARY NO ACUTE CHANGES DURING SHIFT. PT ALERT AND ORIENTED, CALLS APPROPRIATELY. PT ON RA, SPO2 > 92%. BHARDWAJ IN PLACE, DRAINING TO GRAVITY. DRESSINGS TO BUTTOCKS AND HEELS CDI. PT PENDING D/C TOMORROW MORNING TO FACILITY. PRN PAIN AND ANXIETY MEDICATION ADMINISTERED THROUGHOUT SHIFT. WILL CONTINUE TO MONITOR. CALL LIGHT WITHIN REACH.
--- NOTE | 2022-02-14 04:44 | NUR ---
CARDIAC: PATIENT IS BADYCARDIC, SUSTAINING IN THE HIGH 40'S, PATIENT IS SYMPTOMATIC, NAUSEATED AND DIAPHORETIC.
--- NOTE | 2022-02-14 06:40 | NUR ---
SHIFT SUMMARY: PATIENT WAS GIVEN PRN ATROPINE FOR BRADYCARDIA X1 WITH GOOD EFFECT. BROUGHT HEART RATE UP TO MID 50'S. DR DUNNE WAS NOTIFIED OF THE BRADYCARDIA AND THE ATROPINE ADMINISTRATION. PARAMETERS WERE CHANGED FOR ADMIN. OF ATROPINE, SEE MAR.
[2022-02-14] MEDS ORDERED: Acetaminophen325 M1 PO (09:57)
[2022-02-14] MEDS ORDERED: HYDHCL25 PO (09:58)
[2022-02-14] MEDS ORDERED: MELATONIN5 M1 PO (09:58)
[2022-02-14] MEDS ORDERED: SIME80CH PO (09:59)
[2022-02-14] MEDS ORDERED: TRAZ50 PO (09:59)
[2022-02-14] MEDS ORDERED: ARTIFICIAL TEAR15 M2 BOTHEYES (09:59)
[2022-02-14] MEDS ORDERED: VISBIOME 112.51 EACH PO (09:59)
[2022-02-14] MEDS ORDERED: DICLOFENAC SOD100 GM TOP (10:00)
[2022-02-14] MEDS ORDERED: TIZA4 PO (10:01)
--- NOTE | 2022-02-14 10:48 | NUR ---
Pt resting in bed. Pt reports plan to D/C to facility today. Pt requests assistance with completing POLST. Discussed and educated on each section to complete. Assisted with completing POLST. Spoke with Dr Spear and obtained physician signature. Delivered copy of POLST to medical records. Placed orginal POLST in Pt's belongings bag. Palliative Care will remain available.
--- NOTE | 2022-02-14 11:59 | NUR ---
DISCHARGE SUMMARY PT LEFT ROOM VIA WHEELCHAIR WITH SALES SECRETARY ESCORT AND RN LYDIA INMAN. IV REMOVED AND BELONINGSING RETURNED. PT LEFT ROOM AT 1131. REPORT CALLED TO [facility] AT 1149 AT [phone] EXT [phone]. MEPLIX TO COCCYX INTACT AND MEPLIEX TO BLE CHANGED PRIOR TO DISCHARGE.
== END 2022-02-14 11:31 | DRG 871 ==
LOC: ER 07:32 → MEDS 11:03 → ICUW 11:03 → ICUE 11:40 → MEDS 02-01 12:10
PROVIDERS: Emergency Medicine; Family Medicine; ADMIT Internal Medicine
PROC: 5A12012 Performance of Cardiac Output, Single, Manual (ICD-10-PCS; principal; 2022-01-28)
PROC: 3E03329 Introduction of Other Anti-infective into Peripheral Vein, Percutaneous Approach (ICD-10-PCS; 2022-01-28)
PROC: XW023U6 Introduction of COVID-19 Vaccine into Muscle, Percutaneous Approach, New Technology Group 6 (ICD-10-PCS; 2022-02-08)
DX: A41.51 Sepsis due to Escherichia coli [E. coli] (principal); G82.54 Quadriplegia, C5-C7 incomplete; I46.9 Cardiac arrest, cause unspecified; K59.2 Neurogenic bowel, not elsewhere classified; N39.0 Urinary tract infection, site not specified; E87.20 Acidosis, unspecified; M96.A3 Multiple fractures of ribs associated with chest compression and cardiopulmonary resuscitation; R65.20 Severe sepsis without septic shock; K59.00 Constipation, unspecified; N31.9 Neuromuscular dysfunction of bladder, unspecified; B19.20 Unspecified viral hepatitis C without hepatic coma; M62.838 Other muscle spasm; I48.91 Unspecified atrial fibrillation; I10 Essential (primary) hypertension; G90.4 Autonomic dysreflexia; I95.9 Hypotension, unspecified; Z20.822 Contact with and (suspected) exposure to COVID-19; F41.9 Anxiety disorder, unspecified; F32.A Depression, unspecified; R00.1 Bradycardia, unspecified; Y84.8 Other medical procedures as the cause of abnormal reaction of the patient, or of later complication, without mention of misadventure at the time of the procedure; K86.9 Disease of pancreas, unspecified; Z79.899 Other long term (current) drug therapy; Z87.828 Personal history of other (healed) physical injury and trauma; Z79.51 Long term (current) use of inhaled steroids; Z98.890 Other specified postprocedural states; Z79.01 Long term (current) use of anticoagulants; Z79.891 Long term (current) use of opiate analgesic; Z86.711 Personal history of pulmonary embolism
CPT/HCPCS: 36415; 71275; 74018; 74174; 80047; 80048; 80053; 80069; 81001; 82803; 82947; 83605; 83735; 84484; 85014; 85025; 87040; 87077; 87086; 87186; 93005; 93010; 93306; 94664; 94760; 96361-59; 96365-59; 97110; 97112; 97161; 97166; 97530; 99285-25; A9270; C1751; J0461; J0696; J7030; J7040; Q9967; U0004